=== PATIENT | female | born 1985 | race Caucasian/White ===

== ENCOUNTER 2018-03-04 18:48 | Emergency (ER) | payer MEDICAID, OTHER ==
[2018-03-04] MEDS: LIDOCAINE 1% (MPF) 5 ML VIAL INJ (20:09)
== END 2018-03-04 20:36 | disposition home or self-care (01) ==
LOC: FTE 18:48
DX: N61.1 Abscess of the breast and nipple (principal)
CPT/HCPCS: 10060; 99283-25

== ENCOUNTER 2018-03-06 18:46 | Emergency (ER) | payer MEDICAID | END 2018-03-06 20:09 | disposition home or self-care (01) | LOC: FTE 18:46 | DX: Z48.01 Encounter for change or removal of surgical wound dressing (principal) | CPT/HCPCS: 99281; Z7502 ==